=== PATIENT | male | born 1970 | race Caucasian/White ===

== ENCOUNTER → 2021-05-04 | Outpatient (CLI) | payer BC, OTHER | LOC: HYPER 08:11 | PROVIDERS: ATTEND Emergency Medicine | DX: L97.522 Non-pressure chronic ulcer of other part of left foot with fat layer exposed (principal); L97.512 Non-pressure chronic ulcer of other part of right foot with fat layer exposed; L03.115 Cellulitis of right lower limb; L84 Corns and callosities; B35.6 Tinea cruris; E66.9 Obesity, unspecified; F17.200 Nicotine dependence, unspecified, uncomplicated; Z90.49 Acquired absence of other specified parts of digestive tract; Z68.41 Body mass index [BMI] 40.0-44.9, adult ==

== ENCOUNTER → 2021-05-11 | Outpatient (CLI) | payer BC, OTHER | LOC: HYPER 08:07 | PROVIDERS: ATTEND Emergency Medicine | DX: L97.522 Non-pressure chronic ulcer of other part of left foot with fat layer exposed (principal); L97.512 Non-pressure chronic ulcer of other part of right foot with fat layer exposed; L03.115 Cellulitis of right lower limb; L84 Corns and callosities; B35.6 Tinea cruris; E66.9 Obesity, unspecified; F17.200 Nicotine dependence, unspecified, uncomplicated; Z90.49 Acquired absence of other specified parts of digestive tract; Z68.41 Body mass index [BMI] 40.0-44.9, adult ==

== ENCOUNTER → 2021-05-13 | Outpatient (CLI) | payer BC, OTHER | LOC: SJCVCIMAG 11:06 | PROVIDERS: ATTEND Emergency Medicine | DX: I73.9 Peripheral vascular disease, unspecified (principal); L03.119 Cellulitis of unspecified part of limb ==

== ENCOUNTER → 2021-05-20 | Outpatient (CLI) | payer BC, OTHER | LOC: HYPER 08:50 | PROVIDERS: ATTEND Emergency Medicine | DX: L97.522 Non-pressure chronic ulcer of other part of left foot with fat layer exposed (principal); L97.512 Non-pressure chronic ulcer of other part of right foot with fat layer exposed; L03.115 Cellulitis of right lower limb; L84 Corns and callosities; B35.6 Tinea cruris; E66.9 Obesity, unspecified; F17.200 Nicotine dependence, unspecified, uncomplicated; Z90.49 Acquired absence of other specified parts of digestive tract; Z68.41 Body mass index [BMI] 40.0-44.9, adult ==